=== PATIENT | male | born 1950 | race Caucasian/White ===

== ENCOUNTER 2019-09-08 14:33 | Inpatient (IN) ==
[2019-09-08] MEDS ORDERED: Thiamine 100 MG/ML 2 ml VIAL 100 MG, Folic Acid 1 MG, Multiple Vitamin IV ADULT 10 ML i... IV ONE (16:21)
[2019-09-08 17:22] LABS: INR 1.08 (0.82-1.09)
[2019-09-08 17:36] LABS: Troponin I 0.03 ng/mL (<0.03)
[2019-09-08 17:46] LABS: TSH (Thyroid Stimulating Horm) 2.86 mcIU/mL (0.34-5.60)
[2019-09-08 17:51] LABS: ALT 83 U/L (7-52); AST 182 U/L (13-39); Albumin 3.7 g/dL (3.2-5.2); Albumin/Globulin Ratio 1.2 (1-3); Alkaline Phosphatase 172 U/L (34-104); Anion Gap 27 mmol/L (2-11); BUN/Creatinine Ratio 27.7 (8-20); Blood Urea Nitrogen 28 mg/dL (6-24); CO2 Carbon Dioxide 16 mmol/L (22-32); Calcium 8.4 mg/dL (8.6-10.3); Chloride 90 mmol/L (101-111); EGFR African American 88.1 (>60); EGFR Non-African American 72.8 (>60); Globulin 3.1 g/dL (2-4); Glucose 91 mg/dL (70-100); Potassium 4.2 mmol/L (3.5-5.0); Sodium 133 mmol/L (135-145); Total Protein 6.8 g/dL (6.4-8.9)
[2019-09-08 17:52] LABS: Acetaminophen < 15 mcg/mL; Salicylate < 2.50 mg/dL (<30)
[2019-09-08] MEDS ORDERED: NS 0.9% 1000 ml BAG 1,000 ML IV ONE (17:55)
[2019-09-08 18:00] LABS: Hematocrit 32 % (42-52); Hemoglobin 11.1 g/dL (14.0-18.0); Mean Corpuscular HGB Conc 34 g/dL (31-36); Mean Corpuscular Hemoglobin 38 pg (27-31); Mean Corpuscular Volume 111 fL (80-94); Platelet Count 134 10^3/uL (150-450); Red Blood Count 2.93 10^6 /uL (4.18-5.48); Red Cell Distribution Width 15 % (10-15); White Blood Count 8.9 10^3/uL (3.5-10.8)
[2019-09-08 18:40] LABS: ABS Lymphocytes 0.2 10^3/ul (1.0-4.8); ABS Monocytes 0.7 10^3/ul (0-0.8); ABS Nucleated RBC 0.1 10^3/ul; Lymphocyte % 2.8 %; Nucleated Red Blood Cells % 0.9
[2019-09-08] MEDS ORDERED: Ondansetron 4 mg VIAL 2 MG/ML 2 ml VIAL IV PRN (19:13)
[2019-09-08] MEDS ORDERED: Thiamine 100 MG/ML 2 ml VIAL (200 mg) IM ONE (19:19)
[2019-09-08 20:01] LABS: Troponin I 0.01 ng/mL (<0.03)
[2019-09-08 20:04] LABS: Alcohol, S < 10 mg/dL (<10)
[2019-09-08 20:07] LABS: % Iron Saturation 101 % (15-55); Iron 190 ug/dL (50-212); Total Iron Binding Capacity 189 mcg/dL (250-450); Transferrin 135 mg/dL (203-362)
[2019-09-08 20:20] LABS: Cholesterol 192 mg/dL; HDL Cholesterol 94.1 mg/dL; LDL Cholesterol 47 mg/dL; Triglycerides 254 mg/dL
[2019-09-08 20:38] LABS: Folate 2.71 ng/mL (>3.99)
[2019-09-08 20:43] LABS: Magnesium 1.7 mg/dL (1.9-2.7)
[2019-09-08] MEDS ORDERED: THIAMINE IV SCH (21:00)
[2019-09-08] MEDS ORDERED: NS 0.9% IV SCH (21:00)
[2019-09-08] MEDS ORDERED: Thiamine 100 MG/ML 2 ml VIAL (200 mg) IV SCH (21:00)
[2019-09-08] MEDS: Enoxaparin 40 MG/0.4 ML SYR(*) SUBCUT SCH (23:40)
[2019-09-08] MEDS: LORazepam 1 mg TAB (*) PO SCH (23:41)
[2019-09-09] MEDS ORDERED: Magnesium Sulfate 2 gm BAG 2 GM/50 ML BAG IVPB ONE (02:46)
[2019-09-09 04:59] LABS: ABS Lymphocytes 0.5 10^3/ul (1.0-4.8); ABS Monocytes 0.7 10^3/ul (0-0.8); ABS Nucleated RBC 0.2 10^3/ul; Hematocrit 27 % (42-52); Hemoglobin 9.3 g/dL (14.0-18.0); Lymphocyte % 8.8 %; Mean Corpuscular HGB Conc 35 g/dL (31-36); Mean Corpuscular Hemoglobin 38 pg (27-31); Mean Corpuscular Volume 110 fL (80-94); Mean Platelet Volume 9.8 fL (7.4-10.4); Nucleated Red Blood Cells % 3.9; Platelet Count 113 10^3/uL (150-450); Red Blood Count 2.47 10^6 /uL (4.18-5.48); Red Cell Distribution Width 15 % (10-15); White Blood Count 5.3 10^3/uL (3.5-10.8)
[2019-09-09] MEDS: Multivitamins/Minerals TAB PO SCH (08:30)
[2019-09-09] MEDS: NS 0.9% IV SCH ×2 (08:32→17:33)
[2019-09-09] MEDS: THIAMINE IV SCH ×2 (08:32→17:33)
[2019-09-09] MEDS: LORazepam 1 mg TAB (*) PO SCH (10:26)
[2019-09-09 10:53] LABS: Albumin/Globulin Ratio 1.3 (1-3); BUN/Creatinine Ratio 41.9 (8-20); Calcium 8.1 mg/dL (8.6-10.3); EGFR African American 106.1 (>60); EGFR Non-African American 87.7 (>60); Globulin 2.4 g/dL (2-4); Potassium 3.7 mmol/L (3.5-5.0); Total Bilirubin 1.5 mg/dL (0.2-1.0); Total Protein 5.4 g/dL (6.4-8.9)
[2019-09-09 19:39] LABS: Vitamin D Total 25(OH) 43.9 ng/mL (20-50)
[2019-09-09] MEDS: Enoxaparin 40 MG/0.4 ML SYR(*) SUBCUT SCH (19:43)
[2019-09-09 20:25] LABS: Urine Appearance Clear; Urine Bilirubin Negative (Negative); Urine Blood Negative (Negative); Urine Color Amber; Urine Glucose Negative (Negative); Urine Ketones 2+ (Negative); Urine Nitrite Negative (Negative); Urine Protein 1+(30 mg/dL) (Negative); Urine Specific Gravity 1.026 (1.010-1.030); Urine Urobilinogen Positive (Negative)
[2019-09-09 20:26] LABS: Urine Bacteria Absent (Absent); Urine Red Blood Cell Trace(0-2/hpf) (Absent); Urine White Blood Cell Trace(0-5/hpf) (Absent)
[2019-09-10] MEDS: NS 0.9% IV SCH ×3 (01:44→16:50)
[2019-09-10] MEDS: THIAMINE IV SCH ×3 (01:44→16:50)
[2019-09-10 05:31] LABS: ABS Lymphocytes 0.3 10^3/ul (1.0-4.8); ABS Monocytes 0.6 10^3/ul (0-0.8); ABS Nucleated RBC 0.1 10^3/ul; Eosinophil % 0.1 %; Hematocrit 25 % (42-52); Hemoglobin 9.1 g/dL (14.0-18.0); Mean Corpuscular HGB Conc 36 g/dL (31-36); Mean Corpuscular Hemoglobin 39 pg (27-31); Mean Corpuscular Volume 108 fL (80-94); Mean Platelet Volume 9.5 fL (7.4-10.4); Platelet Count 93 10^3/uL (150-450); Red Blood Count 2.36 10^6 /uL (4.18-5.48); Red Cell Distribution Width 14 % (10-15)
[2019-09-10 05:43] LABS: Albumin 2.7 g/dL (3.2-5.2); Albumin/Globulin Ratio 1.1 (1-3); Calcium 7.3 mg/dL (8.6-10.3); EGFR African American 193.9 (>60); EGFR Non-African American 160.2 (>60); Globulin 2.4 g/dL (2-4); Magnesium 1.6 mg/dL (1.9-2.7); Total Protein 5.1 g/dL (6.4-8.9)
[2019-09-10 06:03] LABS: Potassium 2.7 mmol/L (3.5-5.0)
[2019-09-10] MEDS ORDERED: Magnesium Sulfate 2 gm BAG 2 GM/50 ML BAG IVPB ONE (06:18)
[2019-09-10] MEDS: Potassium Chlor 20 meq TAB.ER PO SCH ×2 (06:28→09:28)
[2019-09-10] MEDS ORDERED: Folic Acid IV 5 MG/ML 10 ML VIAL (50 mg) IM ONE (09:00)
[2019-09-10] MEDS: KCL 20 MEQ/100 ML IVPREMIX 20 MEQ/100 ML BAG IV SCH ×2 (09:07→10:59)
[2019-09-10] MEDS: Multivitamins/Minerals TAB PO SCH (09:29)
[2019-09-10] MEDS ORDERED: Iohexol 350 (CONTRAST) 500 ML MDV IV ONE (18:50)
[2019-09-10 19:08] LABS: Calcium 8.1 mg/dL (8.6-10.3); EGFR African American 167.1 (>60); EGFR Non-African American 138.1 (>60); Potassium 4.1 mmol/L (3.5-5.0)
[2019-09-10] MEDS: Enoxaparin 40 MG/0.4 ML SYR(*) SUBCUT SCH (21:39)
[2019-09-11] MEDS: NS 0.9% IV SCH ×4 (01:48→22:10)
[2019-09-11] MEDS: THIAMINE IV SCH ×4 (01:48→22:10)
[2019-09-11 08:15] LABS: ABS Lymphocytes 0.6 10^3/ul (1.0-4.8); ABS Monocytes 0.6 10^3/ul (0-0.8); ABS Nucleated RBC 0.1 10^3/ul; Eosinophil % 0.7 %; Hematocrit 25 % (42-52); Hemoglobin 8.7 g/dL (14.0-18.0); Lymphocyte % 9.6 %; Mean Corpuscular HGB Conc 36 g/dL (31-36); Mean Corpuscular Hemoglobin 38 pg (27-31); Mean Corpuscular Volume 108 fL (80-94); Nucleated Red Blood Cells % 1.9; Platelet Count 100 10^3/uL (150-450); Red Blood Count 2.28 10^6 /uL (4.18-5.48); Red Cell Distribution Width 14 % (10-15); White Blood Count 6.6 10^3/uL (3.5-10.8)
[2019-09-11 08:27] LABS: Albumin 2.7 g/dL (3.2-5.2); Albumin/Globulin Ratio 1.1 (1-3); BUN/Creatinine Ratio 26.1 (8-20); Calcium 7.8 mg/dL (8.6-10.3); EGFR African American 218.4 (>60); EGFR Non-African American 180.5 (>60); Globulin 2.5 g/dL (2-4); Potassium 3.7 mmol/L (3.5-5.0); Total Protein 5.2 g/dL (6.4-8.9)
[2019-09-11] MEDS: Multivitamins/Minerals TAB PO SCH (08:50)
[2019-09-11 10:18] LABS: Polychromasia 1+
[2019-09-11 17:10] LABS: Magnesium 1.6 mg/dL (1.9-2.7)
[2019-09-11] MEDS: Enoxaparin 40 MG/0.4 ML SYR(*) SUBCUT SCH (21:51)
[2019-09-12 06:45] LABS: ABS Basophils 0.1 10^3/ul (0-0.2); ABS Lymphocytes 0.7 10^3/ul (1.0-4.8); ABS Monocytes 0.9 10^3/ul (0-0.8); ABS Nucleated RBC 0.1 10^3/ul; Eosinophil % 0.6 %; Hematocrit 27 % (42-52); Hemoglobin 9.4 g/dL (14.0-18.0); Lymphocyte % 9.7 %; Mean Corpuscular HGB Conc 35 g/dL (31-36); Mean Corpuscular Hemoglobin 38 pg (27-31); Mean Corpuscular Volume 109 fL (80-94); Mean Platelet Volume 8.5 fL (7.4-10.4); Nucleated Red Blood Cells % 1.2; Platelet Count 139 10^3/uL (150-450); Red Blood Count 2.45 10^6 /uL (4.18-5.48); Red Cell Distribution Width 15 % (10-15); White Blood Count 7.2 10^3/uL (3.5-10.8)
[2019-09-12 07:00] LABS: Albumin/Globulin Ratio 1.1 (1-3); BUN/Creatinine Ratio 17.8 (8-20); Calcium 8.4 mg/dL (8.6-10.3); EGFR Non-African American 185.1 (>60); Globulin 2.7 g/dL (2-4); Potassium 3.9 mmol/L (3.5-5.0); Total Bilirubin 0.8 mg/dL (0.2-1.0); Total Protein 5.7 g/dL (6.4-8.9)
[2019-09-12 07:03] LABS: Polychromasia 1+
[2019-09-12] MEDS: Multivitamins/Minerals TAB PO SCH (08:32)
[2019-09-12 09:56] LABS: Magnesium 1.6 mg/dL (1.9-2.7)
[2019-09-12] MEDS ORDERED: Magnesium Sulfate IV 3 GM in NS 0.9% 100 ml BAG 100 ML IVPB ONE (10:10)
[2019-09-12] MEDS: Enoxaparin 40 MG/0.4 ML SYR(*) SUBCUT SCH (20:51)
[2019-09-13 06:57] LABS: Albumin 2.7 g/dL (3.2-5.2); Albumin/Globulin Ratio 1.1 (1-3); Calcium 8.2 mg/dL (8.6-10.3); EGFR African American 218.4 (>60); EGFR Non-African American 180.5 (>60); Globulin 2.5 g/dL (2-4); Magnesium 1.8 mg/dL (1.9-2.7); Potassium 3.5 mmol/L (3.5-5.0); Total Bilirubin 0.7 mg/dL (0.2-1.0); Total Protein 5.2 g/dL (6.4-8.9)
[2019-09-13] MEDS: Multivitamins/Minerals TAB PO SCH (08:59)
[2019-09-13] MEDS ORDERED: Thiamine 100 MG/ML 2 ml VIAL (200 mg) IV SCH (09:00)
[2019-09-13] MEDS: NS 0.9% IV SCH (09:12)
[2019-09-13] MEDS: THIAMINE IV SCH (09:12)
[2019-09-13 14:47] LABS: ABS Lymphocytes 0.4 10^3/ul (1.0-4.8); Eosinophil % 0.4 %; Hematocrit 26 % (42-52); Hemoglobin 8.8 g/dL (14.0-18.0); Lymphocyte % 5.8 %; Mean Corpuscular HGB Conc 34 g/dL (31-36); Mean Corpuscular Hemoglobin 37 pg (27-31); Mean Corpuscular Volume 110 fL (80-94); Mean Platelet Volume 7.8 fL (7.4-10.4); Nucleated Red Blood Cells % 0.3; Platelet Count 219 10^3/uL (150-450); Red Blood Count 2.37 10^6 /uL (4.18-5.48); Red Cell Distribution Width 15 % (10-15); White Blood Count 6.9 10^3/uL (3.5-10.8)
[2019-09-13 15:06] LABS: BUN/Creatinine Ratio 21.3 (8-20); Calcium 8.3 mg/dL (8.6-10.3); EGFR Non-African American 176.1 (>60); Magnesium 1.8 mg/dL (1.9-2.7); Potassium 3.9 mmol/L (3.5-5.0)
[2019-09-13 21:02] LABS: Urine Appearance Clear; Urine Bilirubin Negative (Negative); Urine Blood Negative (Negative); Urine Color Yellow; Urine Glucose Negative (Negative); Urine Ketones Negative (Negative); Urine Nitrite Negative (Negative); Urine Protein Negative (Negative); Urine Specific Gravity 1.006 (1.010-1.030); Urine Urobilinogen Negative (Negative)
[2019-09-13] MEDS: Enoxaparin 40 MG/0.4 ML SYR(*) SUBCUT SCH (21:20)
[2019-09-13] MEDS: DOXYcycline 100 mg CAP (*) PO SCH (21:20)
[2019-09-14 07:07] LABS: BUN/Creatinine Ratio 13.2 (8-20); Calcium 8.2 mg/dL (8.6-10.3); EGFR African American 185.4 (>60); EGFR Non-African American 153.3 (>60); Magnesium 1.7 mg/dL (1.9-2.7); Potassium 3.8 mmol/L (3.5-5.0)
[2019-09-14 07:16] LABS: ABS Lymphocytes 0.5 10^3/ul (1.0-4.8); ABS Monocytes 1.2 10^3/ul (0-0.8); Eosinophil % 0.6 %; Hematocrit 23 % (42-52); Lymphocyte % 9.1 %; Mean Corpuscular HGB Conc 35 g/dL (31-36); Mean Corpuscular Hemoglobin 38 pg (27-31); Mean Corpuscular Volume 109 fL (80-94); Mean Platelet Volume 7.7 fL (7.4-10.4); Nucleated Red Blood Cells % 0.3; Platelet Count 235 10^3/uL (150-450); Red Blood Count 2.08 10^6 /uL (4.18-5.48); Red Cell Distribution Width 15 % (10-15); White Blood Count 5.2 10^3/uL (3.5-10.8)
[2019-09-14] MEDS: DOXYcycline 100 mg CAP (*) PO SCH (08:06)
[2019-09-14 08:11] VITALS: BP 119/77
[2019-09-14] MEDS: NS 0.9% IV SCH (08:29)
[2019-09-14] MEDS: THIAMINE IV SCH (08:29)
[2019-09-14] MEDS ORDERED: Multivitamins/Minerals TAB PO SCH (12:00)
== END 2019-09-14 10:50 | DRG 641 ==
LOC: ED 14:33 → MEDTELE 19:13
PROVIDERS: ADMIT Pediatrics; ATTEND Hospitalist

== ENCOUNTER 2021-06-19 18:56 | Inpatient (IN) ==
[2021-06-19] MEDS ORDERED: NS 0.9% 1000 ml BAG 1,000 ML IV ONE ×2 (19:31→19:33)
[2021-06-19 20:25] LABS: ABS Lymphocytes 0.4 10^3/ul (1.0-4.8); ABS Monocytes 0.6 10^3/ul (0-0.8); ABS Nucleated RBC 0.1 10^3/ul; Hematocrit 23 % (42-52); Hemoglobin 7.8 g/dL (14.0-18.0); Lymphocyte % 2.3 %; Mean Corpuscular HGB Conc 34 g/dL (31-36); Mean Corpuscular Hemoglobin 35 pg (27-31); Mean Corpuscular Volume 103 fL (80-94); Mean Platelet Volume 9.2 fL (7.4-10.4); Nucleated Red Blood Cells % 0.5; Platelet Count 134 10^3/uL (150-450); Red Blood Count 2.23 10^6 /uL (4.18-5.48); Red Cell Distribution Width 13 % (10-15)
[2021-06-19 20:31] LABS: INR 1.06 (0.86-1.15)
[2021-06-19 21:02] LABS: Albumin 4.4 g/dL (3.2-5.2); Albumin/Globulin Ratio 1.6 (1-3); Calcium 9.4 mg/dL (8.6-10.3); Globulin 2.8 g/dL (2-4); Potassium 3.6 mmol/L (3.5-5.0); Total Protein 7.2 g/dL (6.4-8.9); eGFR CKD-EPI 63.9 (>60)
[2021-06-19] MEDS ORDERED: Lorazepam PYXIS KEY PRN (22:25)
[2021-06-19] MEDS ORDERED: LORazepam 2 mg VIAL 1 ml IV PUSH ONE (22:25)
[2021-06-19] MEDS ORDERED: Potassium Chlor 20 meq TAB.ER PO ONE (23:12)
[2021-06-19] MEDS ORDERED: Enoxaparin 40 MG/0.4 ML SYR SUBCUT SCH (23:45)
[2021-06-20] MEDS ORDERED: Thiamine 100 MG/ML 2 ml VIAL (200 mg) IM ONE (00:10)
[2021-06-20] MEDS ORDERED: Albuterol/Ipratropium NEB.SOL (2.5/0.5 MG) 3 ML NEB.SOLN INH PRN (00:12)
[2021-06-20 00:35] LABS: Ferritin 344.4 ng/mL (24-336)
[2021-06-20 00:38] LABS: Folate 9.89 ng/mL (5.90-24.80)
[2021-06-20] MEDS: Multivitamins/Minerals TAB PO SCH ×2 (01:01→08:44)
[2021-06-20 01:07] LABS: C Reactive Protein 31.01 mg/L (<8.01)
[2021-06-20] MEDS: cefTRIAXone 1 gm/50 mL NS BAG 1 GM/50 ML BAG IVPB SCH (04:07)
[2021-06-20] MEDS: DOXYcycline 100 MG in NS 0.9% 250 ml 250 ML IVPB SCH ×2 (04:08→15:50)
[2021-06-20 06:04] LABS: Hematocrit 19 % (42-52); Hemoglobin 6.2 g/dL (14.0-18.0); Mean Corpuscular HGB Conc 33 g/dL (31-36); Mean Corpuscular Hemoglobin 35 pg (27-31); Mean Corpuscular Volume 104 fL (80-94); Mean Platelet Volume 9.7 fL (7.4-10.4); Platelet Count 109 10^3/uL (150-450); Red Blood Count 1.77 10^6 /uL (4.18-5.48); Red Cell Distribution Width 14 % (10-15); White Blood Count 13.7 10^3/uL (3.5-10.8)
[2021-06-20 06:07] LABS: ABS Lymphocytes 0.8 10^3/ul (1.0-4.8); ABS Monocytes 1.1 10^3/ul (0-0.8); ABS Neutrophils 11.8 10^3/ul (1.5-7.7); Lymphocyte % 5.6 %; Nucleated Red Blood Cells % 0.3
[2021-06-20] MEDS ORDERED: Pantoprazole VIAL 40 MG VIAL IV ONE (06:10)
[2021-06-20] MEDS: PTO: Albuterol/Ipratropium RESP(NF) MDI (Combivent Respimat) INH SCH ×4 (06:19→19:27)
[2021-06-20 06:30] LABS: Albumin 3.6 g/dL (3.2-5.2); Albumin/Globulin Ratio 1.7 (1-3); Calcium 8.7 mg/dL (8.6-10.3); Globulin 2.1 g/dL (2-4); Magnesium 1.7 mg/dL (1.9-2.7); Potassium 4.8 mmol/L (3.5-5.0); Total Protein 5.7 g/dL (6.4-8.9); eGFR CKD-EPI 84.5 (>60)
[2021-06-20] MEDS ORDERED: Magnesium Sulfate IV 3 GM in NS 0.9% 100 ml BAG 100 ML IVPB ONE (06:35)
[2021-06-20] MEDS ORDERED: Magnesium Sulfate 2 GM IV (Premix) IVPB ONE (07:30)
[2021-06-20] MEDS ORDERED: Magnesium Sulfate 1 GM IV 1 GM/100 ML BAG IV ONE (09:00)
[2021-06-20] MEDS ORDERED: Enoxaparin 40 MG/0.4 ML SYR SUBCUT SCH (10:00)
[2021-06-20 11:42] LABS: Hematocrit 22 % (42-52); Hemoglobin 7.3 g/dL (14.0-18.0); Mean Corpuscular HGB Conc 34 g/dL (31-36); Mean Corpuscular Hemoglobin 34 pg (27-31); Mean Corpuscular Volume 100 fL (80-94); Mean Platelet Volume 9.2 fL (7.4-10.4); Platelet Count 110 10^3/uL (150-450); Red Blood Count 2.16 10^6 /uL (4.18-5.48); Red Cell Distribution Width 16 % (10-15); White Blood Count 13.5 10^3/uL (3.5-10.8)
[2021-06-20] MEDS: LORazepam 2 mg VIAL 1 ml IV PUSH SCH ×4 (12:18→20:11)
[2021-06-20 12:31] LABS: Anisocytosis 1+; Macrocytosis 1+; Polychromasia 1+
[2021-06-20 12:32] LABS: ABS Lymphocytes 0.5 10^3/ul (1.0-4.8); ABS Monocytes 0.3 10^3/ul (0-0.8); ABS Neutrophils 12.6 10^3/ul (1.5-7.7); ABS Nucleated RBC 0.1 10^3/ul; Nucleated Red Blood Cells % 0.5
[2021-06-20 13:10] LABS: Urine Appearance Cloudy; Urine Bilirubin Negative (Negative); Urine Blood Negative (Negative); Urine Color Yellow; Urine Glucose Negative (Negative); Urine Ketones 1+ (Negative); Urine Nitrite Negative (Negative); Urine Protein 1+(30 mg/dL) (Negative); Urine Specific Gravity 1.021 (1.002-1.030); Urine Urobilinogen Negative (Negative)
[2021-06-20 13:17] LABS: Urine Bacteria 1+ (Absent); Urine Red Blood Cell Trace(0-2/hpf) (Absent); Urine Squamous Epithelial Cell Present (Absent); Urine White Blood Cell Trace(0-5/hpf) (Absent)
[2021-06-20] MEDS: Nicotine GUM 2MG FRUIT FLAVOR PO PRN (20:10)
[2021-06-21] MEDS: cefTRIAXone 1 gm/50 mL NS BAG 1 GM/50 ML BAG IVPB SCH (03:00)
[2021-06-21] MEDS: DOXYcycline 100 MG in NS 0.9% 250 ml 250 ML IVPB SCH ×2 (03:20→15:26)
[2021-06-21] MEDS: Nicotine GUM 2MG FRUIT FLAVOR PO PRN ×2 (04:00→20:38)
[2021-06-21 05:44] LABS: Hematocrit 20 % (42-52); Hemoglobin 6.9 g/dL (14.0-18.0); Mean Corpuscular HGB Conc 34 g/dL (31-36); Mean Corpuscular Hemoglobin 34 pg (27-31); Mean Corpuscular Volume 100 fL (80-94); Mean Platelet Volume 9.7 fL (7.4-10.4); Platelet Count 123 10^3/uL (150-450); Red Blood Count 2.04 10^6 /uL (4.18-5.48); Red Cell Distribution Width 16 % (10-15); White Blood Count 11.6 10^3/uL (3.5-10.8)
[2021-06-21 06:25] LABS: Calcium 8.5 mg/dL (8.6-10.3); Potassium 3.6 mmol/L (3.5-5.0); eGFR CKD-EPI 96.9 (>60)
[2021-06-21] MEDS: PTO: Albuterol/Ipratropium RESP(NF) MDI (Combivent Respimat) INH SCH ×4 (07:37→20:10)
[2021-06-21] MEDS: Multivitamins/Minerals TAB PO SCH (08:31)
[2021-06-21] MEDS ORDERED: Iohexol 350 (CONTRAST) 500 ML MDV IV ONE (09:17)
[2021-06-21] MEDS ORDERED: LORazepam 2 mg VIAL 1 ml IV PUSH SCH (12:34)
[2021-06-21] MEDS: Lidocaine PATCH 5% PATCH TRANSDERM SCH (12:44)
[2021-06-21] MEDS: Pantoprazole VIAL 40 MG VIAL IV SCH ×2 (14:24→20:38)
[2021-06-21 16:59] LABS: Hematocrit 23 % (42-52); Hemoglobin 8.1 g/dL (14.0-18.0)
[2021-06-22] MEDS: DOXYcycline 100 MG in NS 0.9% 250 ml 250 ML IVPB SCH ×2 (03:08→16:17)
[2021-06-22 05:56] LABS: Hematocrit 23 % (42-52); Hemoglobin 7.7 g/dL (14.0-18.0); Mean Corpuscular HGB Conc 34 g/dL (31-36); Mean Corpuscular Hemoglobin 34 pg (27-31); Mean Corpuscular Volume 99 fL (80-94); Mean Platelet Volume 9.1 fL (7.4-10.4); Platelet Count 142 10^3/uL (150-450); Red Cell Distribution Width 17 % (10-15); White Blood Count 11.3 10^3/uL (3.5-10.8)
[2021-06-22 06:29] LABS: Calcium 8.4 mg/dL (8.6-10.3); Magnesium 1.8 mg/dL (1.9-2.7); Potassium 3.5 mmol/L (3.5-5.0); eGFR CKD-EPI 92.8 (>60)
[2021-06-22] MEDS ORDERED: Magnesium Sulfate 2 gm BAG 2 GM/50 ML BAG IVPB ONE (07:11)
[2021-06-22 07:24] LABS: Polychromasia 2+
[2021-06-22 07:25] LABS: ABS Basophils 0.1 10^3/ul (0-0.2); ABS Lymphocytes 1.6 10^3/ul (1.0-4.8); ABS Neutrophils 8.6 10^3/ul (1.5-7.7); ABS Nucleated RBC 0.3 10^3/ul; Eosinophil % 0.2 %; Lymphocyte % 13.8 %; Nucleated Red Blood Cells % 2.9
[2021-06-22] MEDS: PTO: Albuterol/Ipratropium RESP(NF) MDI (Combivent Respimat) INH SCH ×4 (07:31→19:41)
[2021-06-22] MEDS: Lidocaine PATCH 5% PATCH TRANSDERM SCH (09:56)
[2021-06-22] MEDS: Pantoprazole VIAL 40 MG VIAL IV SCH ×2 (10:05→20:56)
[2021-06-22] MEDS: Multivitamins/Minerals TAB PO SCH (10:09)
[2021-06-22] MEDS ORDERED: fentaNYL 100 mcg/2 ml 50 MCG/ML VIAL ONE (13:58)
[2021-06-22] MEDS ORDERED: Midazolam 2 mg/2 ml VIAL 1 mg/ml 2 ml VIAL (2 mg) ONE (13:58)
[2021-06-22] MEDS ORDERED: Propofol 10 MG/ML 20 ML BTL ONE (14:25)
[2021-06-22] MEDS ORDERED: Phenylephrine 40 mcg/mL 10mL (400mcg) SYRINGE ONE (14:30)
[2021-06-22] MEDS ORDERED: Naloxone 0.4 mg VIAL 0.4 mg/ml 1 ml VIAL IV PRN (15:03)
[2021-06-22] MEDS: Nicotine GUM 2MG FRUIT FLAVOR PO PRN (23:45)
[2021-06-23] MEDS: DOXYcycline 100 MG in NS 0.9% 250 ml 250 ML IVPB SCH ×2 (03:14→14:44)
[2021-06-23 07:14] LABS: ABS Eosinophils 0.1 10^3/ul (0-0.6); ABS Lymphocytes 1.2 10^3/ul (1.0-4.8); ABS Monocytes 0.8 10^3/ul (0-0.8); ABS Neutrophils 5.2 10^3/ul (1.5-7.7); Eosinophil % 0.9 %; Hematocrit 23 % (42-52); Mean Corpuscular HGB Conc 34 g/dL (31-36); Mean Corpuscular Hemoglobin 35 pg (27-31); Mean Corpuscular Volume 101 fL (80-94); Mean Platelet Volume 8.8 fL (7.4-10.4); Nucleated Red Blood Cells % 0.5; Platelet Count 180 10^3/uL (150-450); Red Cell Distribution Width 17 % (10-15); White Blood Count 7.3 10^3/uL (3.5-10.8)
[2021-06-23] MEDS: PTO: Albuterol/Ipratropium RESP(NF) MDI (Combivent Respimat) INH SCH (07:46)
[2021-06-23 08:10] LABS: Calcium 8.4 mg/dL (8.6-10.3); Magnesium 2.2 mg/dL (1.9-2.7); Potassium 3.6 mmol/L (3.5-5.0); eGFR CKD-EPI 93.1 (>60)
[2021-06-23] MEDS: Lidocaine PATCH 5% PATCH TRANSDERM SCH (09:35)
[2021-06-23] MEDS: Pantoprazole VIAL 40 MG VIAL IV SCH ×2 (09:36→20:24)
[2021-06-23] MEDS: Multivitamins/Minerals TAB PO SCH (09:36)
[2021-06-23] MEDS: PTO:Albuterol/Ipratropium RESP(NF) MDI (Combivent Respimat) INH SCH ×2 (12:49→20:46)
[2021-06-23] MEDS: Nicotine GUM 2MG FRUIT FLAVOR PO PRN (20:24)
[2021-06-24] MEDS: PTO:Albuterol/Ipratropium RESP(NF) MDI (Combivent Respimat) INH SCH ×4 (01:12→20:00)
[2021-06-24] MEDS: DOXYcycline 100 MG in NS 0.9% 250 ml 250 ML IVPB SCH ×2 (03:27→16:20)
[2021-06-24 06:34] LABS: ABS Eosinophils 0.1 10^3/ul (0-0.6); ABS Monocytes 0.8 10^3/ul (0-0.8); ABS Neutrophils 3.3 10^3/ul (1.5-7.7); Eosinophil % 2.6 %; Hematocrit 24 % (42-52); Hemoglobin 8.3 g/dL (14.0-18.0); Lymphocyte % 19.3 %; Mean Corpuscular HGB Conc 34 g/dL (31-36); Mean Corpuscular Hemoglobin 35 pg (27-31); Mean Corpuscular Volume 101 fL (80-94); Mean Platelet Volume 8.4 fL (7.4-10.4); Nucleated Red Blood Cells % 0.3; Platelet Count 226 10^3/uL (150-450); Red Cell Distribution Width 17 % (10-15); White Blood Count 5.4 10^3/uL (3.5-10.8)
[2021-06-24 07:21] LABS: Calcium 8.7 mg/dL (8.6-10.3); Magnesium 2.1 mg/dL (1.9-2.7); Potassium 3.7 mmol/L (3.5-5.0); eGFR CKD-EPI 100.4 (>60)
[2021-06-24] MEDS: Pantoprazole VIAL 40 MG VIAL IV SCH ×2 (08:19→20:51)
[2021-06-24] MEDS: Multivitamins/Minerals TAB PO SCH (08:20)
[2021-06-24] MEDS: Lidocaine PATCH 5% PATCH TRANSDERM SCH (08:20)
[2021-06-24] MEDS: KCL 10 MEQ/50 ML IVPREMIX 10 MEQ/50 ML BAG IV SCH ×3 (08:20→12:31)
[2021-06-24] MEDS: Nicotine GUM 2MG FRUIT FLAVOR PO PRN (20:51)
[2021-06-25] MEDS: PTO:Albuterol/Ipratropium RESP(NF) MDI (Combivent Respimat) INH SCH ×4 (00:15→19:13)
[2021-06-25] MEDS: DOXYcycline 100 MG in NS 0.9% 250 ml 250 ML IVPB SCH (02:53)
[2021-06-25 05:29] LABS: ABS Eosinophils 0.2 10^3/ul (0-0.6); ABS Monocytes 1.1 10^3/ul (0-0.8); Eosinophil % 3.1 %; Hematocrit 25 % (42-52); Hemoglobin 8.4 g/dL (14.0-18.0); Lymphocyte % 19.3 %; Mean Corpuscular HGB Conc 34 g/dL (31-36); Mean Corpuscular Hemoglobin 34 pg (27-31); Mean Corpuscular Volume 102 fL (80-94); Mean Platelet Volume 7.8 fL (7.4-10.4); Nucleated Red Blood Cells % 0.2; Platelet Count 286 10^3/uL (150-450); Red Blood Count 2.47 10^6 /uL (4.18-5.48); Red Cell Distribution Width 18 % (10-15); White Blood Count 5.3 10^3/uL (3.5-10.8)
[2021-06-25 06:08] LABS: Calcium 8.5 mg/dL (8.6-10.3); Potassium 4.1 mmol/L (3.5-5.0); eGFR CKD-EPI 91.4 (>60)
[2021-06-25] MEDS: Lidocaine PATCH 5% PATCH TRANSDERM SCH (08:36)
[2021-06-25] MEDS: Pantoprazole VIAL 40 MG VIAL IV SCH ×2 (08:38→20:21)
[2021-06-25] MEDS: Multivitamins/Minerals TAB PO SCH (08:38)
[2021-06-25] MEDS ORDERED: PEG 3000 GI LAVAGE 1 GALLON PO ONE (16:00)
[2021-06-26] MEDS: PTO:Albuterol/Ipratropium RESP(NF) MDI (Combivent Respimat) INH SCH ×4 (00:24→21:01)
[2021-06-26] MEDS: Lidocaine PATCH 5% PATCH TRANSDERM SCH (10:00)
[2021-06-26] MEDS: Pantoprazole VIAL 40 MG VIAL IV SCH ×2 (10:01→20:53)
[2021-06-26] MEDS ORDERED: fentaNYL 100 mcg/2 ml 50 MCG/ML VIAL ONE (11:13)
[2021-06-26] MEDS ORDERED: Midazolam 10 mg/10 ml VIAL 1 mg/ml 10 ml VIAL (10 mg) ONE (11:13)
[2021-06-26] MEDS: Multivitamins/Minerals TAB PO SCH (14:48)
[2021-06-26] MEDS: Nicotine GUM 2MG FRUIT FLAVOR PO PRN (21:00)
[2021-06-27] MEDS: PTO:Albuterol/Ipratropium RESP(NF) MDI (Combivent Respimat) INH SCH ×3 (00:20→12:33)
[2021-06-27] MEDS: Multivitamins/Minerals TAB PO SCH (08:45)
[2021-06-27] MEDS: Pantoprazole VIAL 40 MG VIAL IV SCH (08:45)
[2021-06-27] MEDS: Lidocaine PATCH 5% PATCH TRANSDERM SCH (08:45)
[2021-06-27 11:36] VITALS: BP 138/88
== END 2021-06-27 15:15 | DRG 307 ==
LOC: ED 18:56 → EDHOLD 23:43 → SUATTDRO 23:43 → MEDTELE 06-20 03:00
PROVIDERS: ADMIT Hospitalist; ATTEND Internal Medicine
PROC: O.GIEGD (2021-06-22 14:10)

== ENCOUNTER 2022-03-23 21:47 | Inpatient (IN) ==
[2022-03-23] MEDS ORDERED: Bupivacaine 0.5% SDV PF 30ML VIAL INJ ONE (22:12)
[2022-03-23 22:38] LABS: ABS Eosinophils 0.1 10^3/ul (0-0.6); ABS Lymphocytes 1.7 10^3/ul (1.0-4.8); ABS Monocytes 0.7 10^3/ul (0-0.8); ABS Neutrophils 10.8 10^3/ul (1.5-7.7); Eosinophil % 0.7 %; Hematocrit 35 % (42-52); Hemoglobin 11.1 g/dL (14.0-18.0); Lymphocyte % 12.7 %; Mean Corpuscular HGB Conc 32 g/dL (31-36); Mean Corpuscular Hemoglobin 33 pg (27-31); Mean Corpuscular Volume 104 fL (80-94); Mean Platelet Volume 8.7 fL (7.4-10.4); Platelet Count 226 10^3/uL (150-450); Red Cell Distribution Width 14 % (10-15); White Blood Count 13.2 10^3/uL (3.5-10.8)
[2022-03-23 23:31] LABS: Albumin/Globulin Ratio 1.6 (1-3); Calcium 8.8 mg/dL (8.6-10.3); Globulin 2.5 g/dL (2-4); Potassium 4.3 mmol/L (3.5-5.0); Total Bilirubin 0.2 mg/dL (0.2-1.0); Total Protein 6.5 g/dL (6.4-8.9); eGFR CKD-EPI 90.8 (>60)
[2022-03-24] MEDS ORDERED: NS 0.9% 1000 ml BAG 2,000 ML IV ONE ×2 (00:10→05:45)
[2022-03-24] MEDS ORDERED: Ondansetron 4 mg VIAL 2 MG/ML 2 ml VIAL IV ONE (00:35)
[2022-03-24] MEDS ORDERED: Thiamine 100 MG/ML 2 ml VIAL 100 MG, Folic Acid IV 1 MG, Multiple Vitamin IV ADULT 10 M... IV ONE (07:17)
[2022-03-24 09:38] LABS: Urine Appearance Clear; Urine Bilirubin Negative (Negative); Urine Blood Trace (Intact) (Negative); Urine Color Yellow; Urine Glucose Negative (Negative); Urine Ketones Negative (Negative); Urine Nitrite Negative (Negative); Urine Protein Trace (Negative); Urine Urobilinogen 0.2 (Negative) (Negative); Urine pH 5.5 (5.0-9.0)
[2022-03-24 09:41] LABS: High Sensitivity Troponin 1 Hr 93 pg/mL (<20)
[2022-03-24 09:48] LABS: Albumin 2.9 g/dL (3.2-5.2); Calcium 7.3 mg/dL (8.6-10.3); Potassium 4.2 mmol/L (3.5-5.0); Total Bilirubin 0.2 mg/dL (0.2-1.0)
[2022-03-24 09:50] LABS: Urine Bacteria Absent (Absent); Urine Red Blood Cell Trace(0-2/hpf) (Absent); Urine Squamous Epithelial Cell Present (Absent); Urine White Blood Cell Trace(0-5/hpf) (Absent)
[2022-03-24 09:54] LABS: Albumin/Globulin Ratio 1.6 (1-3); Globulin 1.8 g/dL (2-4); Total Protein 4.7 g/dL (6.4-8.9); eGFR CKD-EPI 90.8 (>60)
[2022-03-24 10:30] LABS: Urine Benzodiazepine Screen None Detected (None Detect); Urine Cannabinoids Screen None Detected (None Detect); Urine Opiates Screen None Detected (None Detect)
[2022-03-24 11:05] LABS: ABS Basophils 0.1 10^3/ul (0-0.2); ABS Monocytes 1.3 10^3/ul (0-0.8); ABS Neutrophils 7.2 10^3/ul (1.5-7.7); Eosinophil % 0.2 %; Hematocrit 23 % (42-52); Hemoglobin 7.6 g/dL (14.0-18.0); Lymphocyte % 10.2 %; Mean Corpuscular HGB Conc 33 g/dL (31-36); Mean Corpuscular Hemoglobin 33 pg (27-31); Mean Corpuscular Volume 101 fL (80-94); Mean Platelet Volume 8.5 fL (7.4-10.4); Platelet Count 179 10^3/uL (150-450); Red Blood Count 2.33 10^6 /uL (4.18-5.48); Red Cell Distribution Width 14 % (10-15); White Blood Count 9.6 10^3/uL (3.5-10.8)
[2022-03-24] MEDS ORDERED: Ondansetron 4 mg VIAL 2 MG/ML 2 ml VIAL IV PRN (12:49)
[2022-03-24] MEDS ORDERED: LORazepam 2 mg VIAL 1 ml IV PUSH SCH (13:00)
[2022-03-24] MEDS: Enoxaparin 40 MG/0.4 ML SYR SUBCUT SCH (15:49)
[2022-03-25 07:09] LABS: ABS Eosinophils 0.2 10^3/ul (0-0.6); ABS Lymphocytes 1.6 10^3/ul (1.0-4.8); ABS Neutrophils 4.4 10^3/ul (1.5-7.7); Eosinophil % 2.2 %; Hematocrit 20 % (42-52); Hemoglobin 6.6 g/dL (14.0-18.0); Lymphocyte % 22.1 %; Mean Corpuscular HGB Conc 34 g/dL (31-36); Mean Corpuscular Hemoglobin 33 pg (27-31); Mean Corpuscular Volume 99 fL (80-94); Mean Platelet Volume 9.2 fL (7.4-10.4); Nucleated Red Blood Cells % 0.1; Platelet Count 153 10^3/uL (150-450); Red Blood Count 1.98 10^6 /uL (4.18-5.48); Red Cell Distribution Width 13 % (10-15); White Blood Count 7.1 10^3/uL (3.5-10.8)
[2022-03-25 07:20] LABS: Albumin 3.1 g/dL (3.2-5.2); Albumin/Globulin Ratio 1.7 (1-3); Globulin 1.8 g/dL (2-4); Potassium 3.9 mmol/L (3.5-5.0); Total Bilirubin 0.4 mg/dL (0.2-1.0); Total Protein 4.9 g/dL (6.4-8.9); eGFR CKD-EPI 94.5 (>60)
[2022-03-25] MEDS: Multivitamins/Minerals TAB PO SCH (08:41)
[2022-03-25 09:50] LABS: Hematocrit 21 % (42-52); Hemoglobin 7.3 g/dL (14.0-18.0)
[2022-03-25] MEDS: Enoxaparin 40 MG/0.4 ML SYR SUBCUT SCH (16:00)
[2022-03-26 06:26] LABS: ABS Eosinophils 0.1 10^3/ul (0-0.6); ABS Lymphocytes 1.3 10^3/ul (1.0-4.8); ABS Monocytes 0.7 10^3/ul (0-0.8); ABS Neutrophils 3.1 10^3/ul (1.5-7.7); Eosinophil % 2.8 %; Hematocrit 24 % (42-52); Hemoglobin 7.8 g/dL (14.0-18.0); Lymphocyte % 24.3 %; Mean Corpuscular HGB Conc 33 g/dL (31-36); Mean Corpuscular Hemoglobin 32 pg (27-31); Mean Corpuscular Volume 96 fL (80-94); Nucleated Red Blood Cells % 0.1; Platelet Count 164 10^3/uL (150-450); Red Blood Count 2.44 10^6 /uL (4.18-5.48); Red Cell Distribution Width 15 % (10-15); White Blood Count 5.3 10^3/uL (3.5-10.8)
[2022-03-26 06:39] LABS: Calcium 8.6 mg/dL (8.6-10.3); Potassium 3.8 mmol/L (3.5-5.0)
[2022-03-26 06:44] LABS: eGFR CKD-EPI 92.4 (>60)
[2022-03-26] MEDS: Multivitamins/Minerals TAB PO SCH (08:07)
[2022-03-26 09:48] VITALS: BP 147/85
== END 2022-03-26 11:56 | disposition home or self-care (01) | DRG 204 ==
LOC: ED 21:47 → EDHOLD 21:47 → MEDTELE 03-24 15:40
PROVIDERS: ADMIT Internal Medicine; ATTEND Internal Medicine

== ENCOUNTER 2023-02-21 13:41 | Inpatient (IN) ==
[2023-02-21 14:52] LABS: ABS Basophils 0.1 10^3/uL (0.0-0.1); ABS Lymphocytes 0.5 10^3/uL (1.0-4.8); ABS Monocytes 0.9 10^3/uL (0.0-1.1); ABS Neutrophils 7.9 10^3/uL (1.5-7.6); ABS Nucleated RBC 0.01 10^3/ul; Eosinophil % 0.1 %; Hematocrit 33.2 % (38-53); Hemoglobin 10.9 g/dL (13.2-16.3); INR 2.94 (0.83-1.13); Lymphocyte % 5.7 %; Mean Corpuscular Hemoglobin 34.3 pg (27-33); Mean Corpuscular Hgb Conc 32.7 g/dL (31-36); Mean Corpuscular Volume 104.8 fL (80-97); Nucleated Red Blood Cells % 0.1 %/100WBC (0.0-0.8); Platelet Count 201 10^3/uL (150-450); Red Blood Count 3.17 10^6/uL (4.06-5.63); Red Cell Distribution Width 16.7 % (12-17); White Blood Count 9.5 10^3/uL (3.6-10.2)
[2023-02-21 15:08] LABS: Calcium 9.6 mg/dL (8.6-10.3); Creatinine, Serum 0.8 mg/dL (0.67-1.17); Potassium 4.4 mmol/L (3.5-5.0); eGFR CKD-EPI 92.9 (>60)
[2023-02-21] MEDS ORDERED: Amoxicillin/Clavul 875/125 TAB (Augmentin 875 tab) PO ONE (16:10)
[2023-02-21] MEDS ORDERED: Senna TAB 8.6 mg TAB PO PRN (17:57)
[2023-02-21 18:00] LABS: Urine Appearance Clear; Urine Bilirubin Negative (Negative); Urine Blood Negative (Negative); Urine Color Yellow; Urine Glucose Negative (Negative); Urine Ketones Negative (Negative); Urine Nitrite Negative (Negative); Urine Protein 1+(30 mg/dL) (Negative); Urine Specific Gravity 1.015 (1.002-1.030); Urine Urobilinogen Negative (Negative)
[2023-02-21 18:01] LABS: Urine Bacteria Absent (Absent); Urine Red Blood Cell Trace(0-2/hpf) (Absent); Urine White Blood Cell Absent (Absent)
[2023-02-21] MEDS ORDERED: Phytonadione Oral Solution 5 MG/25 ML UDC PO ONE (18:07)
[2023-02-21 18:16] LABS: Urine Benzodiazepine Screen Presumptive Positive (None Detect); Urine Cannabinoids Screen None Detected (None Detect); Urine Opiates Screen None Detected (None Detect)
[2023-02-21] MEDS ORDERED: Lorazepam PYXIS KEY PRN ×2 (18:28→19:13)
[2023-02-21] MEDS ORDERED: LORazepam 2 mg VIAL 1 ml IV PUSH ONE (19:13)
[2023-02-21] MEDS ORDERED: Lactated Ringers 1000 ml BAG 1,000 ML IV ONE (19:17)
[2023-02-21 19:24] LABS: High Sensitivity Troponin 1 Hr 10 pg/mL (<20)
[2023-02-21 21:03] LABS: Albumin 4.2 g/dL (3.2-5.2); Albumin/Globulin Ratio 1.4 (1-3); Direct Bilirubin 0.4 mg/dL (0.03-0.18); Globulin 3.1 g/dL (2-4); Indirect Bilirubin 1.3 mg/dL (0.3-1.0); Total Bilirubin 1.7 mg/dL (0.2-1.0); Total Protein 7.3 g/dL (6.4-8.9)
[2023-02-21 21:13] LABS: Hematocrit 33.1 % (38-53); Hemoglobin 10.8 g/dL (13.2-16.3); Platelet Count 192 10^3/uL (150-450); White Blood Count 7.5 10^3/uL (3.6-10.2)
[2023-02-21 21:40] LABS: Mean Corpuscular Hemoglobin 34.5 pg (27-33); Mean Corpuscular Hgb Conc 32.7 g/dL (31-36); Mean Corpuscular Volume 105.3 fL (80-97); Mean Platelet Volume 8.5 fL (7.5-11.2); Red Blood Count 3.15 10^6/uL (4.06-5.63); Red Cell Distribution Width 16.6 % (12-17)
[2023-02-22] MEDS: Thiamine 100 MG/ML 2 ml VIAL 500 MG in NS 0.9% 250 ml 250 ML IV SCH ×4 (00:21→20:49)
[2023-02-22] MEDS: LORazepam 2 mg VIAL 1 ml IV PUSH PRN (00:57)
[2023-02-22 06:00] LABS: INR 1.52 (0.83-1.13)
[2023-02-22 06:15] LABS: ALT 20 U/L (7-52); AST 33 U/L (13-39); Albumin 3.6 g/dL (3.2-5.2); Albumin/Globulin Ratio 1.4 (1-3); Alkaline Phosphatase 67 U/L (35-149); Anion Gap 8 mmol/L (2-16); Blood Urea Nitrogen 14 mg/dL (6-24); C Reactive Protein 6.66 mg/L (<8.01); CO2 Carbon Dioxide 27 mmol/L (22-32); Calcium 8.6 mg/dL (8.6-10.3); Chloride 98 mmol/L (101-111); Creatinine, Serum 0.82 mg/dL (0.67-1.17); Globulin 2.6 g/dL (2-4); Glucose 95 mg/dL (70-100); Magnesium 1.4 mg/dL (1.9-2.7); Potassium 3.7 mmol/L (3.5-5.0); Sodium 133 mmol/L (135-145); Total Bilirubin 1.6 mg/dL (0.2-1.0); Total Protein 6.2 g/dL (6.4-8.9); eGFR CKD-EPI 92.2 (>60)
[2023-02-22] MEDS ORDERED: Magnesium Sulf 4 GM/100 ML IV 4,000 MG/100 ML BAG IVPB ONE (07:52)
[2023-02-22 08:44] LABS: Hematocrit 31.4 % (38-53); Hemoglobin 10.5 g/dL (13.2-16.3); Mean Corpuscular Hgb Conc 33.3 g/dL (31-36); Mean Corpuscular Volume 105.3 fL (80-97); Mean Platelet Volume 9.3 fL (7.5-11.2); Platelet Count 177 10^3/uL (150-450); Red Blood Count 2.99 10^6/uL (4.06-5.63); Red Cell Distribution Width 16.6 % (12-17); White Blood Count 6.6 10^3/uL (3.6-10.2)
[2023-02-22] MEDS ORDERED: Polyethylene Glycol 3350 17 GM PACKET PO SCH (09:00)
[2023-02-22] MEDS: Lactulose 30 ml UDC PO SCH (09:48)
[2023-02-22] MEDS: Amoxicillin/Clavul 875/125 TAB (Augmentin 875 tab) PO SCH ×2 (09:49→20:49)
[2023-02-22] MEDS: Cholecalciferol (VIT D3) 1,000 unit TAB PO SCH (09:50)
[2023-02-22 10:14] LABS: Folate > 20.00 ng/mL (5.90-24.80)
[2023-02-22 10:15] LABS: Vitamin B12 774 pg/mL (180-914)
[2023-02-22 20:07] LABS: Hemoglobin 9.9 g/dL (13.2-16.3); Mean Corpuscular Hemoglobin 34.9 pg (27-33); Mean Corpuscular Volume 105.7 fL (80-97); Mean Platelet Volume 8.9 fL (7.5-11.2); Platelet Count 160 10^3/uL (150-450); Red Blood Count 2.83 10^6/uL (4.06-5.63); Red Cell Distribution Width 16.8 % (12-17); White Blood Count 7.4 10^3/uL (3.6-10.2)
[2023-02-23 08:16] LABS: Hematocrit 28.4 % (38-53); Hemoglobin 9.5 g/dL (13.2-16.3); Mean Corpuscular Hemoglobin 35.1 pg (27-33); Mean Corpuscular Hgb Conc 33.3 g/dL (31-36); Mean Corpuscular Volume 105.2 fL (80-97); Platelet Count 142 10^3/uL (150-450); Red Cell Distribution Width 16.2 % (12-17); White Blood Count 6.8 10^3/uL (3.6-10.2)
[2023-02-23 08:20] LABS: Activated Partial Thrombo Time 33.6 seconds (26.0-38.0); INR 1.06 (0.83-1.13)
[2023-02-23 08:28] LABS: Albumin 3.5 g/dL (3.2-5.2); Albumin/Globulin Ratio 1.3 (1-3); Calcium 8.3 mg/dL (8.6-10.3); Creatinine, Serum 0.82 mg/dL (0.67-1.17); Globulin 2.7 g/dL (2-4); Magnesium 1.9 mg/dL (1.9-2.7); Potassium 3.8 mmol/L (3.5-5.0); Total Bilirubin 0.8 mg/dL (0.2-1.0); Total Protein 6.2 g/dL (6.4-8.9); eGFR CKD-EPI 92.2 (>60)
[2023-02-23 09:10] LABS: ABS Basophils 0.1 10^3/uL (0.0-0.1); ABS Eosinophils 0.1 10^3/uL (0.0-0.5); ABS Monocytes 0.6 10^3/uL (0.0-1.1); ABS Nucleated RBC 0.05 10^3/ul; Anisocytosis 2+; Eosinophil % 1.6 %; Lymphocyte % 15.3 %; Macrocytosis 2+; Nucleated Red Blood Cells % 0.7 %/100WBC (0.0-0.8); Target Cells 1+
[2023-02-23] MEDS: Amoxicillin/Clavul 875/125 TAB (Augmentin 875 tab) PO SCH ×2 (09:31→21:39)
[2023-02-23] MEDS: Lactulose 30 ml UDC PO SCH (09:31)
[2023-02-23] MEDS: Cholecalciferol (VIT D3) 1,000 unit TAB PO SCH (09:31)
[2023-02-23] MEDS: Thiamine 100 MG/ML 2 ml VIAL 500 MG in NS 0.9% 250 ml 250 ML IV SCH ×3 (09:32→21:40)
[2023-02-23] MEDS: LORazepam 2 mg VIAL 1 ml IV PUSH PRN ×3 (09:48→18:28)
[2023-02-23 12:27] LABS: Hematocrit 30.1 % (38-53); Hemoglobin 9.8 g/dL (13.2-16.3); Mean Corpuscular Hemoglobin 34.6 pg (27-33); Mean Corpuscular Hgb Conc 32.6 g/dL (31-36); Mean Corpuscular Volume 106.3 fL (80-97); Mean Platelet Volume 9.2 fL (7.5-11.2); Platelet Count 151 10^3/uL (150-450); Red Blood Count 2.83 10^6/uL (4.06-5.63); Red Cell Distribution Width 16.6 % (12-17); White Blood Count 9.6 10^3/uL (3.6-10.2)
[2023-02-24] MEDS: Amoxicillin/Clavul 875/125 TAB (Augmentin 875 tab) PO SCH ×2 (08:35→21:14)
[2023-02-24] MEDS: Cholecalciferol (VIT D3) 1,000 unit TAB PO SCH (08:35)
[2023-02-24] MEDS: Lactulose 30 ml UDC PO SCH (08:36)
[2023-02-24 09:30] LABS: ABS Basophils 0.2 10^3/uL (0.0-0.1); ABS Eosinophils 0.1 10^3/uL (0.0-0.5); ABS Lymphocytes 0.6 10^3/uL (1.0-4.8); ABS Monocytes 0.5 10^3/uL (0.0-1.1); ABS Neutrophils 5.7 10^3/uL (1.5-7.6); ABS Nucleated RBC 0.02 10^3/ul; Eosinophil % 1.9 %; Hematocrit 30.6 % (38-53); Hemoglobin 10.1 g/dL (13.2-16.3); Lymphocyte % 8.1 %; Mean Corpuscular Hemoglobin 34.9 pg (27-33); Mean Corpuscular Volume 105.9 fL (80-97); Mean Platelet Volume 9.3 fL (7.5-11.2); Nucleated Red Blood Cells % 0.3 %/100WBC (0.0-0.8); Platelet Count 157 10^3/uL (150-450); Red Blood Count 2.89 10^6/uL (4.06-5.63); Red Cell Distribution Width 16.6 % (12-17)
[2023-02-24 09:46] LABS: INR 1.18 (0.83-1.13)
[2023-02-24] MEDS: Thiamine 100 MG/ML 2 ml VIAL 500 MG in NS 0.9% 250 ml 250 ML IV SCH ×3 (10:41→21:15)
[2023-02-24] MEDS ORDERED: PAIN RELIEVING RUB (MENTHOL/SALICYLATE) 1 APPLIC TUBE TOPICAL PRN (11:35)
[2023-02-24] MEDS: Lidocaine PATCH 5% PATCH TRANSDERM SCH (11:44)
[2023-02-24] MEDS: LORazepam 2 mg VIAL 1 ml IV PUSH PRN (17:27)
[2023-02-25 06:29] LABS: ABS Eosinophils 0.2 10^3/uL (0.0-0.5); ABS Monocytes 0.7 10^3/uL (0.0-1.1); ABS Nucleated RBC 0.04 10^3/ul; Eosinophil % 2.9 %; Hematocrit 29.8 % (38-53); Hemoglobin 9.8 g/dL (13.2-16.3); Lymphocyte % 17.5 %; Mean Corpuscular Hemoglobin 35.1 pg (27-33); Mean Corpuscular Hgb Conc 32.8 g/dL (31-36); Mean Corpuscular Volume 107.2 fL (80-97); Mean Platelet Volume 9.4 fL (7.5-11.2); Nucleated Red Blood Cells % 0.6 %/100WBC (0.0-0.8); Platelet Count 141 10^3/uL (150-450); Red Blood Count 2.78 10^6/uL (4.06-5.63); Red Cell Distribution Width 16.9 % (12-17); White Blood Count 5.9 10^3/uL (3.6-10.2)
[2023-02-25 06:50] LABS: Calcium 8.6 mg/dL (8.6-10.3); Creatinine, Serum 0.83 mg/dL (0.67-1.17); Magnesium 1.8 mg/dL (1.9-2.7); Potassium 4.1 mmol/L (3.5-5.0); eGFR CKD-EPI 91.8 (>60)
[2023-02-25] MEDS: Lactulose 30 ml UDC PO SCH (09:47)
[2023-02-25] MEDS: Cholecalciferol (VIT D3) 1,000 unit TAB PO SCH (09:48)
[2023-02-25] MEDS: Amoxicillin/Clavul 875/125 TAB (Augmentin 875 tab) PO SCH (09:48)
[2023-02-25] MEDS: Lidocaine PATCH 5% PATCH TRANSDERM SCH (09:48)
[2023-02-25] MEDS: Thiamine 100 MG/ML 2 ml VIAL 500 MG in NS 0.9% 250 ml 250 ML IV SCH ×2 (09:59→16:46)
[2023-02-25] MEDS ORDERED: Saline NASAL SPRAY 0.65% BTL BOTH NARES PRN (13:28)
[2023-02-25] MEDS ORDERED: Saline NASAL SPRAY 0.65% BTL BOTH NARES SCH (13:30)
[2023-02-25 15:46] LABS: Rapid COVID-19 Molecular Undetected (Undetected)
[2023-02-26 07:54] LABS: ABS Eosinophils 0.1 10^3/uL (0.0-0.5); ABS Lymphocytes 0.9 10^3/uL (1.0-4.8); ABS Monocytes 0.8 10^3/uL (0.0-1.1); ABS Neutrophils 4.1 10^3/uL (1.5-7.6); ABS Nucleated RBC 0.02 10^3/ul; Eosinophil % 2.2 %; Hematocrit 26.2 % (38-53); Hemoglobin 8.6 g/dL (13.2-16.3); Lymphocyte % 14.2 %; Mean Corpuscular Hemoglobin 34.9 pg (27-33); Mean Corpuscular Hgb Conc 32.9 g/dL (31-36); Mean Platelet Volume 8.7 fL (7.5-11.2); Nucleated Red Blood Cells % 0.4 %/100WBC (0.0-0.8); Platelet Count 139 10^3/uL (150-450); Red Blood Count 2.47 10^6/uL (4.06-5.63); Red Cell Distribution Width 16.5 % (12-17)
[2023-02-26] MEDS: Lactulose 30 ml UDC PO SCH (08:33)
[2023-02-26] MEDS: Cholecalciferol (VIT D3) 1,000 unit TAB PO SCH (08:35)
[2023-02-26] MEDS: Lidocaine PATCH 5% PATCH TRANSDERM SCH (08:40)
[2023-02-26 10:41] VITALS: BP 113/82
== END 2023-02-26 11:00 | DRG 812 ==
LOC: EDHOLD 13:41 → ED 13:41 → SUATTDRO 17:57 → MEDTELE 20:30 → SUATTDRO 02-23 14:41
PROVIDERS: ADMIT Internal Medicine; ATTEND Student in an Organized Health Care Education/Training Program

== ENCOUNTER 2023-07-04 18:45 | Inpatient (IN) ==
[2023-07-04] MEDS: Lactated Ringers 1000 ml BAG 1,000 ML IV ONE (21:01)
[2023-07-04 21:22] LABS: Alcohol, S 319 mg/dL (<13)
[2023-07-04 21:27] LABS: Hematocrit 32.8 % (38-53); Hemoglobin 10.9 g/dL (13.2-16.3); Mean Corpuscular Hemoglobin 35.6 pg (27-33); Mean Corpuscular Hgb Conc 33.4 g/dL (31-36); Mean Corpuscular Volume 106.7 fL (80-97); Mean Platelet Volume 8.6 fL (7.5-11.2); Platelet Count 237 10^3/uL (150-450); Red Blood Count 3.07 10^6/uL (4.06-5.63); Red Cell Distribution Width 16.3 % (12-17)
[2023-07-04 21:30] LABS: ABS Basophils 0.1 10^3/uL (0.0-0.1); ABS Eosinophils 0.1 10^3/uL (0.0-0.5); ABS Lymphocytes 0.9 10^3/uL (1.0-4.8); ABS Monocytes 0.5 10^3/uL (0.0-1.1); ABS Neutrophils 6.4 10^3/uL (1.5-7.6); ABS Nucleated RBC 0.01 10^3/ul; Lymphocyte % 11.1 %; Nucleated Red Blood Cells % 0.1 %/100WBC (0.0-0.8)
[2023-07-04] MEDS: Lidocaine 2% w EPI 1:100,000 20 ML MDV VIAL INJ ONE (21:30)
[2023-07-04 21:39] LABS: INR 1.79 (0.83-1.13)
[2023-07-04 22:21] LABS: High Sensitivity Troponin 1 Hr 6 pg/mL (<20)
[2023-07-04 22:55] LABS: Albumin/Globulin Ratio 1.1 (1-3); Calcium 8.4 mg/dL (8.6-10.3); Creatinine, Serum 0.76 mg/dL (0.67-1.17); Globulin 3.6 g/dL (2-4); Total Bilirubin 0.5 mg/dL (0.2-1.0); Total Protein 7.6 g/dL (6.4-8.9); eGFR CKD-EPI 93.7 (>60)
[2023-07-04 23:10] LABS: Magnesium 1.8 mg/dL (1.9-2.7); Potassium 4.9 mmol/L (3.5-5.0)
[2023-07-04] MEDS: Iohexol 300 (CONTRAST) 10 ML SDV IV ONE (23:57)
[2023-07-05] MEDS: Thiamine 100 MG/ML 2 ml VIAL 100 MG, Folic Acid IV 1 MG, Multiple Vitamin IV ADULT 10 M... IV ONE (02:31)
[2023-07-05 02:57] LABS: Folate > 20.00 ng/mL (5.90-24.80)
[2023-07-05 02:58] LABS: Vitamin B12 831 pg/mL (180-914)
[2023-07-05 03:06] LABS: Ferritin 97.6 ng/mL (24-336)
[2023-07-05 03:15] LABS: Urine Appearance Clear; Urine Bilirubin Negative (Negative); Urine Blood Negative (Negative); Urine Color Light-Yellow; Urine Glucose Negative (Negative); Urine Ketones 1+ (Negative); Urine Nitrite Negative (Negative); Urine Protein Negative (Negative); Urine Urobilinogen Negative (Negative); Urine pH 5.5 (5.0-8.0)
[2023-07-05] MEDS: Lactated Ringers 1000 ml BAG 1,000 ML IV ONE (03:18)
[2023-07-05] MEDS: Magnesium Sulfate 2 gm BAG 2 GM/50 ML BAG IVPB ONE (03:34)
[2023-07-05 06:03] LABS: ABS Basophils 0.1 10^3/uL (0.0-0.1); ABS Lymphocytes 0.5 10^3/uL (1.0-4.8); ABS Monocytes 1.2 10^3/uL (0.0-1.1); ABS Neutrophils 12.7 10^3/uL (1.5-7.6); ABS Nucleated RBC 0.03 10^3/ul; Hematocrit 25.9 % (38-53); Hemoglobin 8.7 g/dL (13.2-16.3); Lymphocyte % 3.5 %; Mean Corpuscular Hemoglobin 35.8 pg (27-33); Mean Corpuscular Hgb Conc 33.7 g/dL (31-36); Mean Corpuscular Volume 106.2 fL (80-97); Mean Platelet Volume 8.4 fL (7.5-11.2); Nucleated Red Blood Cells % 0.2 %/100WBC (0.0-0.8); Platelet Count 176 10^3/uL (150-450); Red Blood Count 2.43 10^6/uL (4.06-5.63); White Blood Count 14.4 10^3/uL (3.6-10.2)
[2023-07-05 06:43] LABS: Calcium 7.9 mg/dL (8.6-10.3); Creatinine, Serum 0.85 mg/dL (0.67-1.17); Magnesium 1.4 mg/dL (1.9-2.7); Potassium 3.7 mmol/L (3.5-5.0); eGFR CKD-EPI 90.6 (>60)
[2023-07-05] MEDS: Lidocaine PATCH 4% TOPICAL SCH (09:42)
[2023-07-05] MEDS: Cholecalciferol (VIT D3) 1,000 unit TAB PO SCH (09:45)
[2023-07-05] MEDS: Multivitamins/Minerals TAB PO SCH (09:45)
[2023-07-05] MEDS: Morphine 2 MG/ML SYRINGE IV PRN (20:32)
[2023-07-06 05:11] LABS: ABS Basophils 0.1 10^3/uL (0.0-0.1); ABS Eosinophils 0.1 10^3/uL (0.0-0.5); ABS Lymphocytes 0.9 10^3/uL (1.0-4.8); ABS Monocytes 1.1 10^3/uL (0.0-1.1); ABS Neutrophils 6.3 10^3/uL (1.5-7.6); ABS Nucleated RBC 0.04 10^3/ul; Eosinophil % 0.8 %; Hematocrit 23.8 % (38-53); Hemoglobin 8.1 g/dL (13.2-16.3); Lymphocyte % 11.1 %; Mean Corpuscular Hemoglobin 36.2 pg (27-33); Mean Corpuscular Hgb Conc 34.2 g/dL (31-36); Mean Corpuscular Volume 105.7 fL (80-97); Mean Platelet Volume 8.9 fL (7.5-11.2); Nucleated Red Blood Cells % 0.5 %/100WBC (0.0-0.8); Platelet Count 142 10^3/uL (150-450); Red Blood Count 2.25 10^6/uL (4.06-5.63); Red Cell Distribution Width 16.2 % (12-17); White Blood Count 8.5 10^3/uL (3.6-10.2)
[2023-07-06 05:16] LABS: Calcium 8.5 mg/dL (8.6-10.3); Creatinine, Serum 0.69 mg/dL (0.67-1.17); eGFR CKD-EPI 96.5 (>60)
[2023-07-06] MEDS: Albuterol HFA INHALER 8 gm MDI INH PRN (08:40)
[2023-07-07 06:35] LABS: Hematocrit 23.2 % (38-53); Hemoglobin 7.9 g/dL (13.2-16.3); Mean Corpuscular Hemoglobin 35.8 pg (27-33); Mean Corpuscular Volume 105.6 fL (80-97); Mean Platelet Volume 9.4 fL (7.5-11.2); Platelet Count 146 10^3/uL (150-450); Red Cell Distribution Width 15.9 % (12-17); White Blood Count 7.8 10^3/uL (3.6-10.2)
[2023-07-07] MEDS ORDERED: Sulfur Hexaflouride MICROSPHR 25 MG VIAL ONE (10:00)
[2023-07-07] MEDS ORDERED: Lidocaine 1% MPF 5 ML VIAL ONE (13:41)
[2023-07-07] MEDS: Magnesium Sulfate 2 gm BAG 2 GM/50 ML BAG IVPB ONE (15:57)
[2023-07-08 06:07] LABS: Hematocrit 22.8 % (38-53); Hemoglobin 7.7 g/dL (13.2-16.3); Mean Corpuscular Hemoglobin 35.7 pg (27-33); Mean Corpuscular Hgb Conc 33.6 g/dL (31-36); Mean Corpuscular Volume 106.4 fL (80-97); Mean Platelet Volume 9.2 fL (7.5-11.2); Platelet Count 164 10^3/uL (150-450); Red Blood Count 2.15 10^6/uL (4.06-5.63); Red Cell Distribution Width 15.7 % (12-17); White Blood Count 6.6 10^3/uL (3.6-10.2)
[2023-07-08 10:50] LABS: Creatinine, Serum 0.7 mg/dL (0.67-1.17); Magnesium 2.1 mg/dL (1.9-2.7); Potassium 4.2 mmol/L (3.5-5.0); eGFR CKD-EPI 96.1 (>60)
[2023-07-09 08:24] LABS: Rapid COVID-19 Molecular Undetected (Undetected)
[2023-07-09] MEDS: SPIRIVA Respimat (tiotropium) 2.5 mcg/inh Inhaler INH SCH (09:57)
[2023-07-09 11:33] LABS: Hematocrit 23.7 % (38-53)
[2023-07-10 09:44] VITALS: BP 107/76
== END 2023-07-10 09:56 | DRG 261 ==
LOC: ED 18:45 → EDHOLD 18:45 → SUATTDRO 07-05 01:57 → MEDTELE 07-05 03:42 → SUATTDRO 07-07 14:31
PROVIDERS: ADMIT Internal Medicine; ATTEND Student in an Organized Health Care Education/Training Program